=== PATIENT | female | born 1990 | race Caucasian/White ===

== ENCOUNTER 2016-10-13 09:22 | Emergency (ER) ==
--- NOTE | 2016-10-13 10:00 | PROVIDER DOCUMENTATION ---
HPI-General Adult - General Chief Complaint: Female Stated Complaint: PREG/BLEEDING Time Seen by Provider: 10/13/16 09:42 Source: patient Allergies/Adverse Reactions: Patient Allergies Allergy/AdvReac Type Severity Reaction Status Date / Time meperidine HCl * Allergy Unknown Verified 10/13/16 09:43 [From Demerol] Sulfa (Sulfonamide Allergy Unknown Verified 10/13/16 09:43 Antibiotics) - History of Present Illness -Gen Adult Nature of Presenting Problems: Pt. is 26 yof that presents with c/o vaginal bleeding and cramping that began this morning. Pt. reports that about two weeks ago she had multiple home tests that were positive. Pt. states that she noticed one big clot this morning and that she is bleeding about as much as a period. Pt. is G1, P0. Location of Pain/Injury: reports: abdomen (cramps). denies: head, face, mouth, neck, chest, upper extremity, hand(s), back, pelvis, genitalia, lower extremity , feet, upper body, lower body, generalized Pain Radiation: reports: no radiation Quality of Pain: reports: cramping. denies: aching, burning, dull, fullness, indigestion, pressure, sharp, stabbing, tearing, throbbing, tightness Severity: reports: mild. denies: moderate, severe Onset/Duration: reports: abrupt, this morning Timing: reports: still present. denies: improving, gone now, resolved prior to arrival, intermittent, constant, changing over time, getting worse Context/Activities at Onset: reports: none. denies: recent emotional stress, recent physical stress, recent trauma history, possible bad food, cold exposure , out of country travel Modifying Factors: improves with: nothing Associated Symptoms: reports: other (Vaginal bleeding). denies: anxiety, arm pain, back/neck pain, chest pain, constipation, cough, diaphoresis, diarrhea, dizziness, EENT symptoms, fatigue, fever/chills, genitourinary problems, headaches, heartburn, joint pain, loss of appetite, malaise, muscle aches, sinus congestion/drainage, nausea, rash, seizure, shortness of breath, sensory/ motor loss, pain with inspiration, swelling/mass in abdomen, syncope, vomiting, weakness, trouble walking Similar Symptoms Previously?: No Recently seen or treated by another doctor?: No Review of Systems - Adult - REVIEW OF SYSTEMS - ADULT Constitutional: reports: see HPI. denies: chills, fever, fatique Eyes: reports: see HPI. denies: discharge, blurred vision, double vision Ears, Nose, Mouth & Throat: reports: see HPI. denies: ear discharge, ear pain, hearing loss, nose pain, loose teeth, mouth/dental pain, throat pain, throat swelling Cardiovascular: reports: see HPI. denies: chest pain, irregular heart rate, palpitations, syncope Respiratory: reports: see HPI. denies: chronic cough, cough, dyspnea on exertion, pleurisy, shortness of breath, wheezing Gastrointestinal: reports: see HPI, abdominal pain. denies: hematemesis, frequent heartburn, nausea, vomiting Genitourinary: reports: see HPI. denies: dysuria, discharge, hematuria, incontinence, urgency Musculoskeletal: reports: see HPI. denies: bone pain, back pain, joint pain, muscle aches, neck pain Integumentary: reports: see HPI. denies: hives, itching, rash, skin thickening Neurological: reports: see HPI. denies: ataxia, dizziness/vertigo, numbness, seizure, tremors Psychiatric: reports: see HPI. denies: anxiety, depression, insomnia, panic attacks, suicidal thoughts Endocrine: reports: see HPI. denies: goiter, increased hunger, polyuria Past History - Adult - PAST MEDICAL HISTORY-ADULT Review of Records: reports: Old Records Reviewed, Nursing Assessment Review, Medications Reviewed, Social history reviewed & non-contributory. Physical Exam-General - PHYSICAL EXAM-ADULT Initial Vital Signs Reviewed: Yes - CONSTITUTIONAL General Appearance: alert, mild distress, thin. negative: obese, anxious, lethargic, slow to respond, obtunded, combative - EYES Eyes: PERRL/EOMI, pink conjunctivae. negative: conjuctival exudate, photophobia , scleral icterus, subconjunctival hemorrhage - HEAD, EARS, NOSE, MOUTH & THROAT HENMT: normocephalic/atraumatic, moist mucous membranes. negative: angioedema, frontal tenderness, maxillary tenderness - NECK Neck: non-tender, full range of motion, supple, normal inspection. negative: lymphadenopathy, trachial deviation, thyromegaly - RESPIRATORY Respiratory: lungs clear, normal breath sounds. negative: crackles, rales, rhonchi, stridor, wheezing - CARDIOVASCULAR Cardiovascular: normal peripheral pulses, regular rate, rhythm, no edema, no JVD , no murmur. negative: extra beats, friction rub, irregularly irregular - CHEST (BREASTS) Chest/Breast: deferred - GASTROINTESTINAL (ABDOMEN) Abdominal Exam: normal bowel sounds, non tender (Not tender to palpation however patient reports cramps that are menstral like), soft. negative: distended, guarding, rigid, rebound, tenderness, hernia, mass - GENITOURINARY Female Genitalia/Pelvic Exam: deferred Rectal Exam: deferred Hemoccult Exam: deferred - LYMPHATIC Lymphatic: no adenopathy. negative: axilla node tender, cervical node tenderness - MUSCULOSKELETAL Back Exam: normal inspection, no CVA tenderness, no vertebral tenderness. negative: ecchymosis, muscle spasm, vertebral tenderness Extremity: normal range of motion, non-tender, normal gait, normal inspection. negative: deformity, erythema, inflammation, swelling, tenderness Peripheral Pulses: radial (R): 2+, radial (L): 2+ - SKIN Integumentary: normal color, normal turgor, warm/dry. negative: cyanosis, diaphoresis, ecchymosis, erythema, jaundice, mottled, pallor, petechiae, purpura , rash, swelling, tenderness - NEUROLOGIC Neurologic: grossly normal, no motor/sensory deficits. negative: aphasia, facial droop, focal weakness, motor weakness, sensory deficit - PSYCHIATRIC Psych/Mental Status: normal mood/affect, normal thought content, normal thought process, oriented x 3. negative: anxious, paranoid, tearful Progress - PLAN OF CARE/RESULTS Progress/Plan/Lab Results: Discussed with patient the results and advised her to come back to the ED on Sunday for a repeat Quant to determine early vs. miscarriage since she cannot get in to see her OB for a couple weeks. Pt. verbalizes understanding. Vital Signs Temp Pulse Resp BP Pulse Ox 10/13/16 09:34 99.2 F 100 H 18 145/88 100 meperidine HCl * [From Demerol] Allergy (Verified 10/13/16 09:43) Unknown Sulfa (Sulfonamide Antibiotics) Allergy (Verified 10/13/16 09:43) Unknown Laboratory 10/13/16 10/13/16 10:01 10:01 Ser , Semi-Qnt 487.1 ABO/Rh A POSITIVE RhIG Candidate? NO Orders Category Date Time Status US OBS COMPLETE < 14 WKS [US] Stat Exams 10/13/16 10:53 Taken QUANT TEST Stat Lab 10/13/16 10:01 Completed RHOGAM WORKUP [BBK] Stat Lab 10/13/16 10:01 Completed Laboratory Tests 10/13/16 10/13/16 10:01 10:01 Ser , Semi-Qnt 487.1 ABO/Rh A POSITIVE RhIG Candidate? NO - ULTRASOUND (By Radiology) 1 US Study: Transvaginal (3.2 mm anechoic structure, no yolk sac or pole, cannot exclude very early IUP, recommend f/u hcg and u/s. ([place])) US Results: see note Departure - Departure Time of Disposition Order: 12:44 DIAGNOSIS: Vaginal bleeding before 22 weeks gestation Disposition: HOME 01 Certified Medical Emergency: Emergent Condition: Stable Additional Instructions: Follow up with primary care physician Follow up with OB physician Return to ED on Sunday for repeat hcg Return to ED for any concerns or worsening of symptoms ED Follow Up Instructions: You have been treated by a care provider in the Emergency Department. These instructions are being provided to you so you can have an understanding of how to care for yourself upon discharge. Upon discharge from the Emergency Department, you are responsible for making arrangements for follow-up care by a physician of your choice. Take all prescribed medications as directed. Return to the Emergency Department immediately for any new or worsening symptoms. You may call the Physician Referral phone number at [phone] to obtain a list of Physicians who are taking new patients. Attestation - Physician/ Mid-level Attestation Patient care was provided by Mid-level provider (PLASTIC SHEETING CUTTER/PA):: Yes Mid-level provider:: Joseph Gonzalez Mid-level documentation review:: The Mid-level provider documentation, treatment plan and medical decision making was reviewed by the physician who agrees with all treatment and medical decision making by the MLP.
--- NOTE | 2016-10-13 12:51 | Diag Imaging Result Document ---
PROCEDURE NAME: US OBS COMPLETE < 14 WKS - 10/13/2016 OBSTETRICAL ULTRASOUND, LESS THAN 14 WEEKS: INDICATION: Bleeding and cramping. FINDINGS: The uterus measures 8.5 x 3.5 x 3.6 cm. The endometrium is thickened measuring 9 mm. There is a 3.2 mm anechoic structure in the endometrium. This could represent an extremely early gestational sac. No pole or yolk sac is identified. The ovaries appear normal in size. There is a small amount of fluid surrounding the right ovary. There is no free fluid within the cul-de-sac. IMPRESSION: 3.2 mm anechoic structure within the uterus could represent an extremely early gestational sac. Recommend follow up HCG values and ultrasound.
[2016-10-13 12:59] VITALS: BP 120/80
== END 2016-10-13 12:59 | disposition home or self-care (01) ==
LOC: P.ED 09:22
DX: O46.91 Antepartum hemorrhage, unspecified, first trimester (principal); Z3A.01 Less than 8 weeks gestation of pregnancy; O26.891 Other specified pregnancy related conditions, first trimester; R10.9 Unspecified abdominal pain
CPT/HCPCS: 36415; 76801; 84702; 86900; 86901

== ENCOUNTER 2016-10-15 11:52 | Emergency (ER) ==
[2016-10-15 12:02] VITALS: BP 132/79
--- NOTE | 2016-10-15 12:57 | PROVIDER DOCUMENTATION ---
HPI-Female /OB/Breast - General Source: reports: patient - History of Present Illness-Female /OB Does patient report she is ?: Yes Location of complaint: reports: suprapubic Radiation: reports: none Quality of Pain: reports: aching, cramping Severity in ED: reports: mild Onset/Duration: reports: gradual, 3 days ago, 4 days ago Timing: reports: still present, improving Context/Activities at Onset: reports: none Vaginal Bleeding Amount: Scant Related Symptoms: reports: vaginal bleeding Sexual intercourse history: reports: Less Than 2 Months Ago, Single Partner Associated Symptoms: denies: dizziness, fever/chills, nausea, vomiting Similar Symptoms Previously?: Yes Recently seen or treated by another doctor?: Yes <Son Matson - Last Filed: 10/15/16 12:53> <Mague Lane - Last Filed: 10/15/16 14:31> - General Chief Complaint: Return/Recheck Stated Complaint: RECHECK 5 WEEKS PREG/BLEEDING Time Seen by Provider: 10/15/16 12:49 Allergies/Adverse Reactions: Patient Allergies Allergy/AdvReac Type Severity Reaction Status Date / Time meperidine HCl * Allergy Unknown Verified 10/13/16 09:43 [From Demerol] Sulfa (Sulfonamide Allergy Unknown Verified 10/13/16 09:43 Antibiotics) - History of Present Illness-Female /OB Nature of Presenting Problem: patient is a 26 y/o F that presents to the ER for f/u from two days ago. patient was seen at that time for vaginal bleeding and positive test. patient had blood work and u/s that showed an echoic area that could be an early . she returns for repeat quant preg. she reports some bleeding still but not as much as a period. (Son Matson) Review of Systems - Adult - REVIEW OF SYSTEMS - ADULT Constitutional: denies: chills, fever Eyes: reports: no symptoms reported Ears, Nose, Mouth & Throat: reports: no symptoms reported Cardiovascular: denies: chest pain, palpitations Respiratory: denies: cough, shortness of breath, wheezing Gastrointestinal: denies: abdominal pain, diarrhea, nausea, vomiting Genitourinary: reports: other (vaginal bleeding). denies: dysuria, discharge Musculoskeletal: reports: no symptoms reported Integumentary: reports: no symptoms reported Neurological: denies: dizziness/vertigo, headache/migraines Psychiatric: reports: no symptoms reported Endocrine: reports: no symptoms reported Hematologic/Lymphatic: reports: no symptoms reported Allergic/Immunologic: reports: no symptoms reported All Other Systems: Reviewed and Negative <Son Matson - Last Filed: 10/15/16 12:53> Past History - Adult - PAST MEDICAL HISTORY-ADULT Review of Records: reports: Old Records Reviewed, Nursing Assessment Review, Medications Reviewed - PRIOR SURGERIES/PROCEDURES Surgical/Procedure History: reports: reviewed, not pertinent - IMMUNIZATION STATUS Childhood Immunizations: See Nurse Assessment Flu Vaccine: See Nurse Assessment - FAMILY HISTORY Family History: reviewed, not pertinent - SOCIAL HISTORY Smoking: non-smoker Living Situation: family <Son Matson - Last Filed: 10/15/16 12:53> Physical Exam-General - PHYSICAL EXAM-ADULT Initial Vital Signs Reviewed: Yes - CONSTITUTIONAL General Appearance: alert, no apparent distress - EYES Eyes: PERRL/EOMI, pink conjunctivae - HEAD, EARS, NOSE, MOUTH & THROAT HENMT: normocephalic/atraumatic, moist mucous membranes, normal ENT inspection - NECK Neck: full range of motion, normal inspection - RESPIRATORY Respiratory: lungs clear, normal breath sounds, no respiratory distress, no accessory muscle use - CARDIOVASCULAR Cardiovascular: normal peripheral pulses, regular rate, rhythm, no murmur - GASTROINTESTINAL (ABDOMEN) Abdominal Exam: normal bowel sounds, non tender, soft, no organomegaly, no pulsatile mass - MUSCULOSKELETAL Extremity: normal range of motion, normal inspection - SKIN Integumentary: normal color, warm/dry - NEUROLOGIC Neurologic: grossly normal, no motor/sensory deficits - PSYCHIATRIC Psych/Mental Status: normal mood/affect, normal thought content, normal thought process, oriented x 3 <Son Matson - Last Filed: 10/15/16 12:53> Progress <Son Matson - Last Filed: 10/15/16 12:53> - ULTRASOUND (By Radiology) 1 US Study: Transvaginal Impression: Abnormal (no iup, uterus appears normal. ovaries obscured by gas, no masses or free fluid per radiology) <Mague Lane - Last Filed: 10/15/16 14:31> - PLAN OF CARE/RESULTS Progress/Plan/Lab Results: plan of care-labs, u/s (Son Matson) Departure <Son Matson - Last Filed: 10/15/16 12:53> - Departure Time of Disposition Order: 14:30 Certified Medical Emergency: Emergent <Mague Lane - Last Filed: 10/15/16 14:31> - Departure DIAGNOSIS: Spontaneous Disposition: HOME 01 Condition: Stable Additional Instructions: Follow up with your warehouse and receiving supervisor ED Follow Up Instructions: You have been treated by a care provider in the Emergency Department. These instructions are being provided to you so you can have an understanding of how to care for yourself upon discharge. Upon discharge from the Emergency Department, you are responsible for making arrangements for follow-up care by a physician of your choice. Take all prescribed medications as directed. Return to the Emergency Department immediately for any new or worsening symptoms. You may call the Physician Referral phone number at [phone] to obtain a list of Physicians who are taking new patients. Attestation - Scribe Verification/Attestation Scribe:: Son Matson Acting as Scribe for:: Mague Lane Scribe documention review:: This chart was documented by a scribe and accurately reflects the service the provider performed and the decisions made by the provider. - Physician/ Mid-level Attestation Patient care was provided by Mid-level provider (NETEZZA DEVELOPER/PA):: Yes Mid-level provider:: Mague Lane Mid-level documentation review:: The Mid-level provider documentation, treatment plan and medical decision making was reviewed by the physician who agrees with all treatment and medical decision making by the MLP. <Son Matson - Last Filed: 10/15/16 12:53> - Physician/ Mid-level Attestation Patient care was provided by Mid-level provider (NETEZZA DEVELOPER/PA):: Yes Mid-level provider:: Mague Lane Mid-level documentation review:: The Mid-level provider documentation, treatment plan and medical decision making was reviewed by the physician who agrees with all treatment and medical decision making by the MLP. <Mague Lane - Last Filed: 10/15/16 14:31> Physician Attestation
--- NOTE | 2016-10-15 14:40 | Diag Imaging Result Document ---
PROCEDURE NAME: US PELVIC NON-VESSEL SCRAPPER HELPER COMPLETE - 10/15/2016 PELVIC ULTRASOUND WITH TRANSVAGINAL PROBE: COMPARISON: 10/13/2016. FINDINGS: No intrauterine gestational sac is identified. Specifically, the tiny cystic structure associated with the endometrium on the previous study cannot be identified. There are several small nabothian cysts involving the cervix. The uterus is grossly normal in echotexture, otherwise. It measures 7.4 x 5.2 x 3.4 cm. The endometrium is 5 mm in thickness. Neither the right nor the left ovary could be identified due to excess bowel gas. No definite adnexal masses are identified. No free fluid can be identified. IMPRESSION: No intrauterine gestational sac identified with a down trending HCG. This suggests possible recent spontaneous . [facility]
== END 2016-10-15 14:45 | disposition home or self-care (01) ==
LOC: P.ED 11:52
DX: O03.9 Complete or unspecified spontaneous abortion without complication (principal); R10.9 Unspecified abdominal pain; N93.9 Abnormal uterine and vaginal bleeding, unspecified
CPT/HCPCS: 36415; 76856; 84702